=== PATIENT | male | born 1965 | race Caucasian/White ===

== ENCOUNTER 2023-06-05 22:14 | Emergency (ER) | payer OTHER ==
--- OUTSIDE RECORDS SUMMARY | 2023-06-05 22:16 | XMS REPORT | Continuity of Care Document ---
:1965 Author Organization [facility] t Address [address] [facility] [address] [place] [address] Care Team Providers Name Role Phone Unavailable Unavailable Unavailable Payers Payer Name Policy Type Policy Number Effective Date Expiration Date S ource Problems This patient has no known problems. Allergies, Adverse Reactions, Alerts Allergy Allergy Status Severity Reaction(s) Onset Inactive Treating Comm ents Source Name Type Date Date Clinician Penicill DA Active SV 2019-0 [facility] 09[facility]24 [facility] 00:00: e 00 [facility] Penicill DA Active SV PRURITIS 2019-0 [facility] ins 09-24 [facility] 00:00: e 00 [facility] No Known DA Active U 2011-0 [facility] Allergie 1-17 [facility] 00:00: e 00 [facility] Medications This patient has no known medications. Procedures This patient has no known procedures. Encounters Start End Encounter Admission Attending Care Care Encounter Source Date/Time Date/Time Type Type Clinicians Facility Department ID 2019-09-24 Inpatient [facility] JULIO [id number] [facility] 13:27:00 71 [facility] Results This patient has no known results.
[2023-06-05] MEDS ORDERED: ASPIRIN 81 MG CHEWABLE TABLET ONE (22:41)
--- NOTE | 2023-06-06 01:04 | RAD REPORT ---
EXAM DESCRIPTION: Sher Single View06/05/2023 10:55 pm CLINICAL HISTORY: CHEST PAIN COMPARISON: No comparisons TECHNIQUE: Portable AP view of the chest. FINDINGS: The lungs are clear. No pneumothorax or effusion. The cardiomediastinal contours are unre markable. IMPRESSION: No acute cardiopulmonary process.
--- NOTE | 2023-06-06 01:09 | EDPHYS ---
Physician Documentation [facility] Name: Melecio Killian IV Age: 58 yrs Sex: Male : 1965 Arrival Date: 06/05/2023 Time: 22:14 Bed IW10 Private MD: ED Physician Dwain Woods HPI: 06/05 22:44 This 58 yrs old Male presents to ER via Ambulatory with complaints of Chest Pain. 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 Denies radiation, nausea, vomiting or increased shortness of breath. States he smokes so he normally has some shortness of breath. Historical: - Allergies: 22:25 PENICILLINS; bp - Home Meds: 22:25 carvedilol oral [Active]; Adderall XR Oral [Active]; bp - PMHx: 22:25 Hypertension; bp - Immunization history:: Adult Immunizations up to date. - Social history:: Smoking status: Patient reports the use of cigarette tobacco products, unknown amount. ROS: 22:44 Constitutional: Negative for fever, chills, and weight loss, kb 22:44 Cardiovascular: Positive for chest pain, Negative for edema, orthopnea, palpitations, paroxysmal nocturnal dyspnea, 22:44 All other systems are negative, Exam: 22:44 Constitutional: This is a well developed, well nourished patient who is awake, alert, kb and in no acute distress. Head/Face: Normocephalic, atraumatic. ENT: Moist Mucous membranes Cardiovascular: Regular rate Respiratory: Respirations even and unlabored. No increased work of breathing. Talking in full sentences Abdomen/GI: Soft, non-tender. No distention Skin: Warm, dry with normal turgor. Normal color. MS/ Extremity: Pulses equal, no cyanosis. Neurovascular intact. Full, normal range of motion. Neuro: Awake and alert, GCS 15, oriented to person, place, time, and situation. Moves all extremities. Normal gait. 22:50 ECG was reviewed by the Attending Physician. kb Vital Signs: 22:24 BP 121 / 81; Pulse 81; Resp 16; Temp 98; Pulse Ox 96% ; Weight 93.89 kg; Height 5 ft. 9 bp in. ; 22:24 Body Mass Index 30.57 (93.89 kg, 175.26 cm) bp MDM: 22:21 Patient medically screened. 06/06 01:07 Differential diagnosis: abnormal EKG, acute myocardial infarction, coronary artery kb disease. Data reviewed: vital signs, nurses notes. ED course: Pt elected to leave lobby prior to diagnostic testing. 06/05 22:25 Order name: XRAY Chest (1 view); Complete Time: 01:06 kb 06/05 22:25 Order name: EKG; Complete Time: 22:26 kb 06/05 22:25 Order name: Cardiac monitoring 06/05 22:25 Order name: EKG - Nurse/Tech; Complete Time: 22:31 kb 06/05 22:25 Order name: IV Saline Lock kb 06/05 22:25 Order name: Labs collected and sent kb 06/05 22:25 Order name: O2 Per Protocol 06/05 22:25 Order name: O2 Sat Monitoring kb EC/06 22:50 Rate is 69 beats/min. Rhythm is regular. QRS [place] is Normal. [place] interval is normal at kb 156 msec. QRS interval is normal at 112 msec. QT interval is normal at 413 msec. Administered Medications: 22:30 Drug: Aspirin PO Chewable Tablet 324 mg PO once; 81 mg tablets x 4 Route: PO; bp Disposition Summary: 06/06/23 01:08 Discharge Ordered Notes: Location: Home kb Condition: Stable kb Diagnosis - Chest pain, unspecified kb Followup: kb - With: Emergency Department - When: As needed - Reason: Worsening of condition Followup: kb - With: Private Physician - When: 2 - 3 days - Reason: Recheck today's complaints, Continuance of care, Re-evaluation by your physician Discharge Instructions: - Discharge Summary Sheet kb - Nonspecific Chest Pain, Adult, [id number] kb Forms: - Medication Reconciliation Form kb - Thank You Letter kb - Antibiotic Education kb - Prescription Opioid Use kb - Patient Portal Instructions kb - Leadership Thank You Letter kb Signatures: Dispatcher [employer] Ani Bills, SHIRA EVANS-Florencio Koch, RN RN bp
--- NOTE | 2023-06-06 01:09 | ER ---
Nurse's Notes [facility] Name: Melecio Killian IV Age: 58 yrs Sex: Male : 1965 Arrival Date: 06/05/2023 Time: 22:14 Bed IW10 Private MD: Diagnosis: Chest pain, unspecified Presentation: 06/05 22:24 Chief complaint: Patient states: LEFT SIDED CHEST PAINS "SHARP". Coronavirus screen: At bp this time, the client does not indicate any symptoms associated with coronavirus-19. Ebola Screen: No symptoms or risks identified at this time. Initial Sepsis Screen: Does the patient meet any 2 criteria? No. Patient's initial sepsis screen is negative. Does the patient have a suspected source of infection? No. Patient's initial sepsis screen is negative. Risk Assessment: Do you want to hurt yourself or someone else? Patient reports no desire to harm self or others. Onset of symptoms was June 05, 2023 at 22:00. 22:24 Method Of Arrival: Ambulatory bp 22:24 Acuity: SAMPSON 3 bp Triage Assessment: 22:26 General: Appears in no apparent distress. Behavior is calm, cooperative, appropriate bp for age. Pain: Complains of pain in chest. EENT: No deficits noted. Cardiovascular: Reports chest pain. Historical: - Allergies: 22:25 PENICILLINS; bp - Home Meds: 22:25 carvedilol oral [Active]; Adderall XR Oral [Active]; bp - PMHx: 22:25 Hypertension; bp - Immunization history:: Adult Immunizations up to date. - Social history:: Smoking status: Patient reports the use of cigarette tobacco products, unknown amount. Screenin/07 01:31 [facility] ED Fall Risk Assessment (Adult) History of falling in the last 3 months, bp including since admission No falls in past 3 months (0 pts). Abuse screen: Denies threats or abuse. Denies injuries from another. Nutritional screening: No deficits noted. Tuberculosis screening: No symptoms or risk factors identified. Vital Signs: 06/05 22:24 BP 121 / 81; Pulse 81; Resp 16; Temp 98; Pulse Ox 96% ; Weight 93.89 kg; Height 5 ft. 9 bp in. ; 22:24 Body Mass Index 30.57 (93.89 kg, 175.26 cm) bp ED Course: 22:18 Patient arrived in ED. gm2 22:21 Ani Merchant FNP-C [facility] kb 22:21 Dwain Woods MD is Attending Physician. kb 22:25 Triage completed. bp 22:26 Arm band placed on. bp 22:57 XRAY Chest (1 view) In Process Unspecified. EDMS 06/06 01:07 Florencio Bloom, RN is Primary Nurse. bp 01:31 Patient has correct armband on for positive identification. Cardiac monitoring not bp applicable on this patient. 01:31 No provider procedures requiring assistance completed. Patient did not have IV access bp during this emergency room visit. Patient maintains SpO2 saturation greater than 95% on room air. Administered Medications: 06/05 22:30 Drug: Aspirin PO Chewable Tablet 324 mg PO once; 81 mg tablets x 4 Route: PO; bp Outcome: 06/06 01:08 Discharge ordered by MD. kb 01:31 Discharged to home ambulatory, bp 01:31 Condition: stable 01:31 Discharge instructions given to patient, Instructed on discharge instructions, follow up and referral plans. Demonstrated understanding of instructions, follow-up care, 01:32 Patient left the ED. bp Signatures: Dispatcher [employer] EDAK Ani Merchant FNP-C CORE DRILLING SUPERVISOR-Florencio Koch, RN RN Aleta Stone gm2
[2023-06-06 01:36] VITALS: BP 121/81; TEMP 98; O2SAT 96
--- NOTE | 2023-06-10 14:28 | EKG ---
Test Date: 2023-06-05 Test Time: 23:28:46 Advertising Sales Executive: KEENAN MEASUREMENT RESULTS: Intervals: Rate: 69 FL: 156 QRSD: 112 QT: 386 QTc: 413 Milo: P: 60 FL: 156 QRS: 66 T: 53 INTERPRETIVE STATEMENTS: Normal sinus rhythm Normal ECG No previous ECG available for comparison Electronically Signed On 06-10-23 14:16:25 GROUP SALES COORDINATOR by Gary Aden
== END 2023-06-06 01:32 | disposition home or self-care (01) ==
LOC: ER 22:14
DX: R07.9 Chest pain, unspecified (principal); I10 Essential (primary) hypertension; F17.210 Nicotine dependence, cigarettes, uncomplicated; Z88.0 Allergy status to penicillin
CPT/HCPCS: 71045; 93005; 99284

== ENCOUNTER → 2023-10-05 | Emergency (ER) | payer OTHER ==
[~2023-10-05] MED LIST: ASPIRIN 81 MG CHEWABLE TABLET ONE; DIAZEPAM 5 MG TABLET ONE
--- OUTSIDE RECORDS SUMMARY | 2023-10-05 19:53 | XMS REPORT | Continuity of Care Document ---
Author Name Unknown Address [address] [facility] [address] [place] [address] [facility] thconnect Address [address] [facility] [place] [address] Care Team Providers Care Hot Shot Name Role Phone Caprice GOODMAN, Joleen Mensah Primary Care Physician YASH SALMON Attending Clinician Unavailable DIANA RAYMOND Attending Clinician UnavailJOLEEN Lau Attending Clinician GABBY Ching Attending Clinician Unavailable LAB90 Attending Clinician Unavailable SAEID MARQUEZ Attending Clinician Unavailable Joleen Vasques MD Attending Clinician [phone] Payers Payer Name Policy Type Policy Number Effective Date Expirati on Date Source [employer] MP [facility] S[facility] 5 O COP 94 [place] 9 [id number] 2023 00:00:00 Problems Condition Name Condition Details Condition Category Status Onset Date Resolution Date Last Treatment Date Treating Clinician Comments Source Family history of colon cancer Family history of colon cancer Disease Active 10-01 00:00: 00 Nayely Flores - Externa l Other male erectile dysfunctio n Other male erectile dysfunctio n Disease Active 10-01 00:00: 00 Nayely hu Opioid abuse Opioid abuse Disease Active 10-01 00:00: 00 Nayely hu Encounter for screening for lipid disorder Encounter for screening for lipid disorder Disease Active 10-01 00:00: 00 Nayely hu Prediabete s Prediabete s Disease Active 10-01 00:00: 00 Nayely hu Class 1 obesity due to excess calories without serious comorbidit y with body mass index (BMI) of 33.0 to 33.9 in adult Class 1 obesity due to excess calories without serious comorbidit y with body mass index (BMI) of 33.0 to 33.9 in adult Disease Active 10-01 00:00: 00 Nayely hu Mild major depression Mild major depression Disease Active 10-01 00:00: 00 Nayely hu No known active problems No known active problems Disease Nayely Flores Allergies, Adverse Reactions, Alerts Allergy Name Allergy Type Status Severity Reaction(s) Onset Date Inactive Date Treating Clinician Comments Source Penicill ins Propensi ty to adverse reaction s Active Anaphylaxis 08-19 00:00: 00 Nayely hu Penicill ins Propensi ty to adverse reaction s Active Anaphylaxis 08-19 00:00: 00 Nayely Flores Penicill ins DA Active SV 09-24 00:00: 00 [facility] Penicill ins DA Active SV PRURITIS 09-24 00:00: 00 [facility] No Known Allergie s DA Active U 08-16 00:00: 00 [facility] Social History Social Habit Start Date Stop Date Quantity Comments Source Gender identity Lisbeth Flores - External Sexual orientation John Flores - External History of tobacco use Cigarette Smoker Nayely flanagan - External Exposure to SARS-CoV-2 (event) Not sure Nayely saunders History of Social function 2022-11-14 00:00:00 2022-11-14 00:00:00 Nayely Flores - External Sex Assigned At 1965 00:00:00 1965 00:00:00 Nayely Pat Smoking Status Start Date Stop Date Source Smokes tobacco daily 2022-11-14 00:00:00 Nayely Pat Medications Ordered Medication Name Filled Medication Name Start Date Stop Date Current Medication? Ordering Clinician Indication Dosage Frequency Signature (SIG) Comments Components Source Tadalafil 5 MG oral Tablet 10-01 00:00: 00 Yes [id number] 5mg QD Take 1 tablet (5 mg total) by mouth daily as needed for erectile dysfunctio n. Nayely hu Carvedilol 25 MG oral Tablet 09-14 00:00: 00 Yes [id number] 25mg Take 1 tablet (25 mg total) by mouth in the morning and 1 tablet (25 mg total) in the evening. Take with meals. Nayely hu Escitalopra m Oxalate 10 MG oral Tablet 09-14 00:00: 00 Yes [id number] 10mg Take 1 tablet (10 mg total) by mouth daily. Nayely hu Varenicline Tartrate 0.5 MG oral Tablet 09-14 00:00: 00 Yes [id number] Take one tablet daily for days 1 through 3 then one tablet twice a day for days 4 through 7 then two tablets twice a day thereafter take after meals with a full glass of water Start one week prior to cessation and continue for 12 weeks. Nayely hu Varenicline Tartrate 0.5 MG oral Tablet 11-14 00:00: 00 Yes [id number] Take one tablet daily for days 1 through 3 then one tablet twice a day for days 4 through 7 then two tablets twice a day thereafter take after meals with a full glass of water Start one week prior to cessation and continue for 12 weeks Nayely hu Carvedilol 25 MG oral Tablet 11-14 00:00: 00 Yes [id number] 25mg Take 1 tablet (25 mg total) by mouth in the morning and 1 tablet (25 mg total) in the evening. Take with meals. Nayely hu Azithromyci n 250 MG oral Tablet 11-14 00:00: 11-20 04:59 :00 No [id number] Take 2 tablets by mouth on day 1 then 1 tablet by mouth daily for 4 days thereafter . Nayely Rosadohenrikpanchito Recioa fritz Ondansetron (ZOFRAN) 4 MG oral TABLET DISPERSIBLE 10-21 00:00: 00 Yes [id number] 4mg Q.[id number] 3D Take 1 tablet (4 mg total) by mouth every 8 hours as needed for nausea Nayely Rosadohenrikpanchito Suarez Almitaa l Carvedilol 25 MG oral Tablet 10-21 00:00: 00 Yes [id number] 25mg Take 1 tablet (25 mg total) by mouth in the morning and 1 tablet (25 mg total) in the evening. Take with meals. Nayely Rosadohenrikpanchito Suarez Externa fritz Ondansetron (ZOFRAN) 4 MG oral TABLET DISPERSIBLE 10-21 00:00: 00 Yes [id number] 4mg Q.[id number] 3D Take 1 tablet (4 mg total) by mouth every 8 hours as needed for nausea Nayely Rosadohenrikpanchito Suarez Almitasulma fritz Ondansetron (ZOFRAN) 4 MG oral TABLET DISPERSIBLE 10-21 00:00: 00 10-01 00:00 :00 No [id number] 4mg Q.[id number] 3D Take 1 tablet (4 mg total) by mouth every 8 hours as needed for nausea Nayely Rosadonicky Daniela Almitasulma fritz Carvedilol 25 MG oral Tablet 10-21 00:00: 00 11-14 00:00 :00 No [id number] 25mg Take 1 tablet (25 mg total) by mouth in the morning and 1 tablet (25 mg total) in the evening. Take with meals. Nayely Sandra Recioa fritz Azithromyci n 500 MG oral Tablet 10-21 00:00: 00 10-25 04:59 :00 No [id number] Take 2 tablets (1,000 mg total) by mouth daily for 1 day, THEN 1 tablet (500 mg total) daily for 2 days. Nayely Sandra Recioa fritz Carvedilol 25 MG oral Tablet 1-20 10:59: 56 08-19 00:00 :00 No 25mg Take 25 mg by mouth 2 times daily (with meals) Nayely Flores Carvedilol 25 MG oral Tablet 08-19 00:00: 00 Yes [id number] 25mg Take 1 tablet (25 mg total) by mouth 2 times daily (with meals) Nayely Flores Escitalopra m Oxalate 10 MG oral Tablet 08-19 00:00: 00 Yes [id number] 10mg Take 1 tablet (10 mg total) by mouth daily Nayely Flores Escitalopra m Oxalate 10 MG oral Tablet 08-19 00:00: 00 Yes [id number] 10mg Take 1 tablet (10 mg total) by mouth daily Nayely hu Escitalopra m Oxalate 10 MG oral Tablet 08-19 00:00: 00 Yes [id number] 10mg Take 1 tablet (10 mg total) by mouth daily Nayely hu Carvedilol 25 MG oral Tablet 08-19 00:00: 00 10-21 00:00 :00 No [id number] 25mg Take 1 tablet (25 mg total) by mouth 2 times daily (with meals) Nayely hu Vital Signs Vital Name Observation Time Observation Value Comments S ource Systolic blood pressure 2023-10-02 20:51:00 102 mm[Hg] Nayely irwin - External Diastolic blood pressure 2023-10-02 20:51:00 64 mm[Hg] Nayely irwin - External Heart rate 2023-10-02 20:51:00 78 /min Del Flores - External Body temperature 2023-10-02 20:51:00 36.67 Salud Nayely Flores - External Respiratory rate 2023-10-02 20:51:00 16 /min Nayely Flores - External Body height 2023-10-02 20:51:00 175.3 cm Lisbeth Flores - External Body weight 2023-10-02 20:51:00 101.833 kg Lisbeth Flores - External BMI 2023-10-02 20:51:00 33.15 kg/m2 Lisbeth ey Seybold - External Oxygen saturation in Arterial blood by Pulse oximetry 2023-10-02 20:51:00 97 /min Nayely Seybo ld - External Systolic blood pressure 2022-11-14 15:42:00 132 mm[Hg] Nayely Seybo ld - External Diastolic blood pressure 2022-11-14 15:42:00 80 mm[Hg] Nayely Seybo ld - External Heart rate 2022-11-14 15:42:00 69 /min Kelse y Seybold - External Body temperature 2022-11-14 15:42:00 36.11 Salud Nayeyl Seybold - External Respiratory rate 2022-11-14 15:42:00 18 /min Nayely Seybold - External Body height 2022-11-14 15:42:00 175.3 cm Lisbeth ey Seybold - External Body weight 2022-11-14 15:42:00 98.249 kg Lisbeth ey Seybold - External BMI 2022-11-14 15:42:00 31.99 kg/m2 Lisbeth ey Seybold - External Oxygen saturation in Arterial blood by Pulse oximetry 2022-11-14 15:42:00 96 /min Nayely Seybo ld - External Systolic blood pressure 2021-08-19 16:20:00 134 mm[Hg] Nayely Seybo ld Diastolic blood pressure 2021-08-19 16:20:00 80 mm[Hg] Nayely Seybo ld Heart rate 2021-08-19 16:20:00 84 /min Kelse y Seybold Body temperature 2021-08-19 16:20:00 37 Salud Nayely Seybold Respiratory rate 2021-08-19 16:20:00 14 /min Nayely Seybold Body height 2021-08-19 16:20:00 175.3 cm Lisbeth ey Seybold Body weight 2021-08-19 16:20:00 102.059 kg Lisbeth ey Seybold BMI 2021-08-19 16:20:00 33.23 kg/m2 Lisbeth ey Seybold Encounters Start Date/Time End Date/Time Encounter Type Admission Type Attending [facility] Facility Care Department Encounter ID Source 2019-09-24 13:27:00 Inpatient [facility] JULIO [id number] 71 [facility] 2024-04-02 13:20:00 2024-04-02 13:20:00 Outpatient YASH SALMON NAYELY JACKMAN [id number] [facility] 2023-11-02 10:30:00 2023-11-02 10:30:00 Outpatient DIANA RAYMOND NAYELY JACKMAN [id number] N[facility]ely [facility] 2023-10-02 15:00:00 2023-10-02 15:00:00 Outpatient DIANA RAYMOND NAYELY JACKMAN [id number] [facility] 2023-09-14 00:00:00 2023-09-14 00:00:00 Outpatient CAPRICE JOLEEN JACKMAN [id number] [facility] 2023-09-12 00:00:00 2023-09-12 00:00:00 Outpatient PREZASGABBY NAYELY JACKMAN [id number] [facility] 2023-07-13 15:00:00 2023-07-13 15:00:00 Outpatient DIANA RAYMOND NAYELY JACKMAN [id number] [facility] 2023-07-11 15:00:00 2023-07-11 15:00:00 Outpatient DIANA RAYMOND NAYELY JACKMAN [id number] [facility] 2023-06-14 11:00:00 2023-06-14 11:00:00 Outpatient DIANA RAYMOND NAYELY JACKMAN [id number] [facility] 2023-06-08 11:15:00 2023-06-08 11:15:00 Outpatient JOLEEN VASQUES [id number] [facility] 2022-12-14 00:00:00 2022-12-14 00:00:00 Outpatient PREZASKASHIFGABBYMOR JACKMAN [id number] Nayely Seybold 2022-12-13 00:00:00 2022-12-13 00:00:00 Outpatient JOLEEN VASQUES [id number] [facility] 2022-11-22 00:00:00 2022-11-22 00:00:00 Outpatient JOLEEN VASQUES [id number] [facility] 2022-11-21 00:00:00 2022-11-21 00:00:00 Outpatient JOLEEN VASQUESSEY [id number] Nayely Flores 2022-11-16 00:00:00 2022-11-16 00:00:00 Outpatient JOLEEN VASQUES [id number] Nayely Rosadoy[facility]anchito 2022-11-14 11:30:00 2022-11-14 11:30:00 Outpatient LABSahil JACKMAN [facility] [id number] [facility] 2022-11-14 10:30:00 2022-11-14 10:30:00 Outpatient JOLEEN VASQUES NAYELY [id number] Nayely Flores 2022-11-02 09:00:00 2022-11-02 09:00:00 Outpatient SAEID MARQUEZ NAYELY [id number] Nayely Flores 2022-10-21 09:00:00 2022-10-21 09:00:00 Outpatient JIMMYSAEID NAYELY JACKMAN [id number] [facility] 2022-10-20 00:00:00 2022-10-20 00:00:00 Outpatient JOLEEN VASQUES NAYELY [id number] Nayely Flores 2021-12-24 00:00:00 2021-12-24 00:00:00 Outpatient JOLEEN VASQUES [facility] [id number] [facility] 2021-08-19 10:45:00 2021-08-19 11:00:00 Office Visit Joleen Vasques José [place] [id number] [facility] Notes Date/Time Note Provider Source 2023-10-02 14:55:22 [id number] T14:55:22 Chief ComplaintPatient presents withPhysicalPatient is not fasting for labsPaCOLE DenisN [id number] [id number]:55:38Nurse [id number]. [id number] for patient [id number] NoteLNNARRATIVEFormatted C-CDA narrative abiodunWestern [facility] Health[address] [facility] [id number] [id number]:55:[id number] 2.3.15|[id number]. [id number] [facility]"
[2023-10-05 20:11] LABS: Absolute Basophils 0.1 K/uL (0-0.5); Absolute Lymphocytes (CBC) 2.5 K/uL (0.7-4.9); Basophils % 0.8 % (0-1.3); Hematocrit 39.9 % (39.6-49.0); Lymphocytes % 18.1 % (15.3-44.8); MCV 90.1 fL (80-100); MPV 8.6 fL (7.6-11.3); Platelets 231 thou/uL (152-406); RBC Red Blood Cell Count 4.43 M/uL (4.33-5.43)
[2023-10-05 20:13] LABS: Protime INR 1.14
[2023-10-05 20:28] LABS: Anion Gap 7.9 mEq/L (5.0-15.0); Magnesium 2.1 mg/dL (1.6-2.4); Potassium 3.9 mEq/L (3.5-5.1); Troponin High Sensitivity 12.3 pg/mL (<58.9)
--- NOTE | 2023-10-05 20:52 | RAD REPORT ---
[facility] pm CLINICAL HISTORY: CHEST PAIN COMPARISON: Chest Single View dated 06/05/2023 TECHNIQUE: Portable AP view of the chest. FINDINGS: The lungs are clear. No pneumothorax or effusion. The cardiomediastinal contours are unre markable. IMPRESSION: No acute cardiopulmonary process.
--- NOTE | 2023-10-05 22:23 | ER ---
Nurse's Notes [facility] Name: Melecio Killian IV Age: 58 yrs Sex: Male : 1965 Arrival Date: 10/05/2023 Time: 19:40 Bed 16 Private MD: Parker Lara E Diagnosis: Chest pain, unspecified;Non cardiac chest pain, Acute anxiety Presentation: 10/04 19:48 Chief complaint: Patient states: Left sided chest pain that radiates down left arm cm10 onset at 1915. Pt describes the pain as pressure and rates the pain a 6/10 on pain scale. Coronavirus screen: Client denies travel out of the [place] in the last 14 days. At this time, the client does not indicate any symptoms associated with coronavirus-19. Ebola Screen: Patient denies travel to an Ebola-affected area in the 21 days before illness onset. No symptoms or risks identified at this time. Initial Sepsis Screen: Does the patient meet any 2 criteria? No. Patient's initial sepsis screen is negative. Does the patient have a suspected source of infection? No. Patient's initial sepsis screen is negative. Risk Assessment: Do you want to hurt yourself or someone else? Patient reports no desire to harm self or others. Onset of symptoms was October 05, 2023. 19:48 Method Of Arrival: Ambulatory cm10 19:48 Acuity: SAMPSON 2 cm10 Triage Assessment: 19:50 General: Appears in no apparent distress. comfortable, Behavior is calm, cooperative. cm10 Pain: Complains of pain in chest Pain radiates to left arm Pain currently is 6 out of 10 on a pain scale. Quality of pain is described as pressure, Pain began suddenly, Is continuous, Alleviated by nothing. Also complains of nausea. Historical: - Allergies: 19:49 PENICILLINS; cm10 - PMHx: 19:49 Hypertension; cm10 - Immunization history:: Adult Immunizations up to date. - Social history:: Smoking status: Patient reports the use of cigarette tobacco products, smokes one-half pack cigarettes per day. Screenin:13 [facility] ED Fall Risk Assessment (Adult) History of falling in the last 3 months, cp4 including since admission No falls in past 3 months (0 pts) Confusion or Disorientation No (0 pts) Intoxicated or Sedated No (0 pts) Impaired Gait No (0 pts) Mobility Assist Device Used No (0 pt) Altered Elimination No (0 pt) Score/Fall Risk Level 0 - 2 = Low Risk Oriented to surroundings, Maintained a safe environment, Educated pt \T\ family on fall prevention, incl call for assistance when getting out of bed, Assessed \T\ reinforced patient's understanding of fall precautions, Hourly rounding (assess needs \T\ fall precautionary measures) done. Abuse screen: Denies threats or abuse. Nutritional screening: No deficits noted. Tuberculosis screening: No symptoms or risk factors identified. Assessment: 20:13 General: Appears in no apparent distress. Behavior is calm, cooperative, appropriate cp4 for age. Pain: Complains of pain in chest Pain currently is 6 out of 10 on a pain scale. Pain: Pain radiates to left arm. Cardiovascular: Reports chest pain. 22:44 Reassessment: Patient and/or family updated on plan of care and expected duration. Pain ha1 level reassessed. Patient is alert, oriented x 3, equal unlabored respirations, skin warm/dry/pink. Patient states feeling better. Patient states symptoms have improved. Vital Signs: 19:48 BP 129 / 84; Pulse 82; Resp 18 S; Temp 97.6(O); Pulse Ox 95% on R/A; Weight 100.7 kg cm10 (R); Height 5 ft. 9 in. (R); Pain 6/10; 20:00 BP 135 / 89; Pulse 69; Resp 18; Pulse Ox 96% ; cp4 21:00 BP 117 / 89; Pulse 70; Resp 18; Pulse Ox 95% ; cp4 22:05 BP 140 / 85; Pulse 71; Resp 17 S; Temp 98; Pulse Ox 96% on R/A; ha1 19:48 Body Mass Index 32.78 (100.70 kg, 175.26 cm) cm10 19:48 Pain Scale: Adult cm10 ED Course: 19:41 Patient arrived in ED. mr 19:41 Parker Lara MD is Private Physician. mr 19:42 Owen Ghosh DO is Attending Physician. ms3 19:49 Triage completed. cm10 19:50 Arm band placed on Patient placed in an exam room, on a stretcher, on panel monitor, cm10 on pulse oximetry. 19:53 Debra Montoya is Primary Nurse. cp4 20:01 Basic Metabolic Panel Sent. cp4 20:01 CBC with Diff Sent. cp4 20:01 Magnesium Sent. cp4 20:01 PT-INR Sent. cp4 20:02 Troponin HS Sent. cp4 20:02 No provider procedures requiring assistance completed. Inserted saline lock: 20 gauge cp4 in left antecubital area, using aseptic technique. Patient maintains SpO2 saturation greater than 95% on room air. 20:13 Attending Physician role handed off by Owen Ghosh DO ms3 20:13 Dwani Woods MD is Attending Physician. ms3 20:13 Placed in gown. Bed in low position. Call light in reach. Side rails up X 1. Provided cp4 Education on:. Client placed on continuous cardiac and pulse oximetry monitoring. NIBP monitoring applied. 20:36 XRAY Chest (1 view) In Process Unspecified. EDMS 21:51 Troponin High Sensitivity Sent. cp4 22:05 Report received from Pao Montoya RN. ha1 22:21 Parker Lara MD is Referral Physician. sp4 22:46 IV discontinued, intact, bleeding controlled, No redness/swelling at site. Pressure ha1 dressing applied. Administered Medications: 20:01 Drug: Aspirin PO Chewable Tablet 324 mg PO once; 81 mg tablets x 4 Route: PO; cp4 22:35 Drug: Diazepam PO 5 mg PO once Route: PO; ha1 22:46 Follow up: Response: No adverse reaction ha1 Medication: 20:13 VIS not applicable for this client. cp4 Outcome: 22:22 Discharge ordered by . sp4 22:46 Discharged to home ambulatory, with family, ha1 22:46 Condition: stable 22:46 Discharge instructions given to patient, family, Instructed on discharge instructions, follow up and referral plans. medication usage, Demonstrated understanding of instructions, follow-up care, medications, Prescriptions given X 1, 22:46 Patient left the ED. ha1 Signatures: Dispatcher [employer] EDGA Torrie Holloway, Clifford Reg GhoshOwen DO DO ms3 Rika Ho RN RN ha1 Dwain Woods MD MD sp4 Sara Bloom RN RN cmDebra Kline cp4
--- NOTE | 2023-10-05 22:23 | EDPHYS ---
Physician Documentation [facility] Name: Wayne Wu IV Age: 58 yrs Sex: Male : 1965 Arrival Date: 10/05/2023 Time: 19:40 Bed 16 Private MD: Parker Lara E ED Physician Dwain Woods HPI: 10/04 19:49 This 58 yrs old Male presents to ER via Ambulatory with complaints of Chest Pain. ms3 19:49 58-year-old male with past medical history of hypertension presents to the emergency ms3 department for left-sided chest pain that began at 7:45 PM. Patient states that the pain radiates down his left arm. Patient endorses nausea. Patient denies vomiting, shortness of breath, diaphoresis. Patient denies any alleviating or inciting factors. Historical: - Allergies: 19:49 PENICILLINS; cm10 - PMHx: 19:49 Hypertension; cm10 - Immunization history:: Adult Immunizations up to date. - Social history:: Smoking status: Patient reports the use of cigarette tobacco products, smokes one-half pack cigarettes per day. ROS: 19:49 Constitutional: Negative for fever, and chills. Neck: Negative for injury, pain, and ms3 swelling, 19:49 Respiratory: Negative for shortness of breath, cough, wheezing, and pleuritic chest pain, MS/Extremity: Negative for injury and deformity, Skin: Negative for injury, rash, and discoloration, 19:49 Cardiovascular: Positive for chest pain, 19:49 Abdomen/GI: Positive for nausea, Negative for vomiting, diarrhea, ms3 Exam: 19:49 Constitutional: This is a well developed, well nourished patient who is awake, alert, ms3 and in no acute distress. Head/Face: Normocephalic, atraumatic. Neck: Trachea midline, no cervical lymphadenopathy. Supple, full range of motion without nuchal rigidity, or vertebral point tenderness. No Meningismus. Chest/axilla: Normal chest wall appearance and motion. Nontender with no deformity. Cardiovascular: Regular rate and rhythm with a normal S1 and S2. No gallops, murmurs, or rubs. Normal PMI, no JVD. No pulse deficits. Respiratory: Lungs have equal breath sounds bilaterally, clear to auscultation and percussion. No rales, rhonchi or wheezes noted. No increased work of breathing, no retractions or nasal flaring. Abdomen/GI: Soft, non-tender, with normal bowel sounds. No distension or tympany. No guarding or rebound. No evidence of tenderness throughout. Skin: Warm, dry with normal turgor. Normal color with no rashes, no lesions, and no evidence of cellulitis. MS/ Extremity: Pulses equal, no cyanosis. Neurovascular intact. Full, normal range of motion. 19:52 ECG was reviewed by the Attending Physician. ms3 Vital Signs: 19:48 BP 129 / 84; Pulse 82; Resp 18 S; Temp 97.6(O); Pulse Ox 95% on R/A; Weight 100.7 kg cm10 (R); Height 5 ft. 9 in. (R); Pain 6/10; 20:00 BP 135 / 89; Pulse 69; Resp 18; Pulse Ox 96% ; cp4 21:00 BP 117 / 89; Pulse 70; Resp 18; Pulse Ox 95% ; cp4 22:05 BP 140 / 85; Pulse 71; Resp 17 S; Temp 98; Pulse Ox 96% on R/A; ha1 19:48 Body Mass Index 32.78 (100.70 kg, 175.26 cm) cm10 19:48 Pain Scale: Adult cm10 MDM: 19:49 Differential diagnosis: abnormal EKG, acute myocardial infarction, anxiety, chest wall ms3 pain. The patient was given aspirin in the Emergency Department. 19:52 Patient medically screened. ms3 20:13 Transition of care: After a detail discussion of the patient's case, care is ms3 transferred to Dwain Woods MD. 22:23 HEART Score: History: Slightly Suspicious (0), ECG: Normal (0), Age: > 45 and < 65 sp4 years (1), Risk Factors: 1 or 2 risk factors (1), Troponin: < or = 1 x Normal Limit (0), Total Score = 2. Data reviewed: vital signs, nurses notes. 22:24 ED course: Troponin x 2 is negative. Patient stable for discharge home. Symptoms sp4 consistent with anxiety. Prescribed as needed Valium.. 22:25 ED course: EXAM DESCRIPTION: Sher Fausto View10/05/2023 8:34 pm CLINICAL HISTORY: sp4 CHEST PAIN COMPARISON: Chest Single View dated 06/05/2023 TECHNIQUE: Portable AP view of the chest. FINDINGS: The lungs are clear. No pneumothorax or effusion. The cardiomediastinal contours are unremarkable. IMPRESSION: No acute cardiopulmonary process.. 22:54 ED course: RADIOLOGYSERVICES REPORT Name: WAYNE WU IV Acct Number: [id number] :[id number] Age:58 Sex:M Ord Phys: Owen Ghosh Unit Number: [id number] [place] [facility] Dr: Parker Lara MD CLINICAL HISTORY: CHEST PAIN COMPARISON: Chest Single View dated 06/05/2023 TECHNIQUE: Portable AP view of the chest. FINDINGS: The lungs are clear. No pneumothorax or effusion. The cardiomediastinal contours are unremarkable. IMPRESSION: No acute cardiopulmonary process. . 10/04 19:51 Order name: Basic Metabolic Panel; Complete Time: 21:42 ms3 10/04 19:51 Order name: CBC with Diff; Complete Time: 21:42 ms3 10/04 19:51 Order name: Magnesium; Complete Time: 21:42 ms3 10/04 19:51 Order name: PT-INR; Complete Time: 21:42 ms3 10/04 19:51 Order name: Troponin HS; Complete Time: 21:42 ms3 10/04 21:44 Order name: Troponin High Sensitivity; Complete Time: 22:21 sp4 10/04 19:51 Order name: XRAY Chest (1 view); Complete Time: 21:42 ms3 10/04 19:51 Order name: EKG; Complete Time: 19:52 ms3 10/04 19:51 Order name: Cardiac monitoring; Complete Time: 19:53 ms3 10/04 19:51 Order name: EKG - Nurse/Tech; Complete Time: 19:53 ms3 10/04 19:51 Order name: IV Saline Lock; Complete Time: 20:01 ms3 10/04 19:51 Order name: Labs collected and sent; Complete Time: 20:01 ms3 10/04 19:51 Order name: O2 Per Protocol; Complete Time: 19:53 ms3 10/04 19:51 Order name: O2 Sat Monitoring; Complete Time: 19:53 ms3 EC:52 Rate is 73 beats/min. Rhythm is regular. QRS [facility] is Normal. [place] interval is normal. QRS ms3 interval is normal. Clinical impression: Normal ECG. Interpreted by me. Reviewed by me. Administered Medications: 20:01 Drug: Aspirin PO Chewable Tablet 324 mg PO once; 81 mg tablets x 4 Route: PO; cp4 22:35 Drug: Diazepam PO 5 mg PO once Route: PO; ha1 22:46 Follow up: Response: No adverse reaction ha1 Disposition Summary: 10/05/23 22:22 Discharge Ordered Notes: Location: Home sp4 Problem: new sp4 Symptoms: have improved sp4 Condition: Stable sp4 Diagnosis - Chest pain, unspecified sp4 - Non cardiac chest pain, Acute anxiety sp4 Followup: sp4 - With: Parker Lara MD - When: 7 - 10 days - Reason: Recheck today's complaints Discharge Instructions: - Discharge Summary Sheet sp4 - Managing Anxiety, Adult sp4 Forms: - Patient Portal Instructions sp4 Prescriptions: - Valium 5 mg Oral tablet - take 1 tablet ORAL route once daily As needed PRN anxiety attacks; 20 tablet; sp4 Refills: 0, Product Selection Permitted Signatures: Dispatcher [employer] EDMS Owen Ghosh, DO ms3 Rika Ho RN RN ha1 Dwain Woods MD MD sp4 Sara Bloom RN RN cm10 Debra Montoya cp4 Corrections: (The following items were deleted from the chart) 19:51 19:49 Respiratory: Negative for shortness of breath, cough, wheezing, and pleuritic ms3 chest pain, Abdomen/GI: Negative for abdominal pain, nausea, vomiting, diarrhea, and constipation, MS/Extremity: Negative for injury and deformity, Skin: Negative for injury, rash, and discoloration, ms3
[2023-10-05 23:57] VITALS: BP 140/85; TEMP 98; O2SAT 96
== END ==
LOC: ER 19:40
DX: R07.89 Other chest pain (principal); F41.9 Anxiety disorder, unspecified; I10 Essential (primary) hypertension; F17.210 Nicotine dependence, cigarettes, uncomplicated; Z88.0 Allergy status to penicillin
CPT/HCPCS: 36415; 71045; 80048; 83735; 84484; 85025; 85610; 93005; 99284

== ENCOUNTER 2025-04-19 12:18 | Emergency (ER) | payer OTHER, SELFPAY ==
--- OUTSIDE RECORDS SUMMARY | 2025-04-19 12:22 | XMS REPORT | Continuity of Care Document ---
Author Name Unknown Address [address] [place] [address] [facility] Address [address] [place] [address] Care Team Providers Care Putty Remover Name Role Phone Caprice GOODMAN, Joleen Mensah Primary Care Physician DIANA RAYMOND Attending Clinician Unavailab YASH Villa Attending Clinician Unavailable GABBY ZIMMER Attending Clinician Unavailable JOLEEN VASQUES Attending Clinician Unava ilable LAB90 Attending Clinician Unavailable SAEID MARQUEZ Attending Clinician Unavailable Joleen Vasques MD Attending Clinician [phone] Payers Payer Name Policy Type Policy Number Effective Date Expirati on Date Source [employer] 5 O [employer] 94 ON 9 [id number] 2023 00:00:00 Problems Condition Name Condition Details Condition Category Status Onset Date Resolution Date Last Treatment Date Treating Clinician Comments Source Prediabete s Prediabete s Disease Active 10-01 00:00: 00 Nayely hu Class 1 obesity due to excess calories without serious comorbidit y with body mass index (BMI) of 33.0 to 33.9 in adult Class 1 obesity due to excess calories without serious comorbidit y with body mass index (BMI) of 33.0 to 33.9 in adult Disease Active 10-01 00:00: 00 Nayely Recioa fritz Mild major depression Mild major depression Disease Active 10-01 00:00: 00 Nayely Flores - Externa fritz Family history of colon cancer Family history of colon cancer Disease Active 10-01 00:00: 00 Nayely Recioa fritz Other male erectile dysfunctio n Other male erectile dysfunctio n Disease Active 10-01 00:00: 00 Nayely Suarez Externa fritz Opioid abuse Opioid abuse Disease Active 10-01 00:00: 00 Nayely Suarez Externa fritz Encounter for screening for lipid disorder Encounter for screening for lipid disorder Disease Active 10-01 00:00: 00 Nayely Suarez Externa fritz No known active problems No known active problems Disease Nayely Flores Allergies, Adverse Reactions, Alerts Allergy Name Allergy Type Status Severity Reaction(s) Onset Date Inactive Date Treating Clinician Comments Source Penicill ins Propensi ty to adverse reaction s Active Anaphylaxis 08-19 00:00: 00 Nayely Recioa l Penicill ins Propensi ty to adverse reaction s Active Anaphylaxis 08-19 00:00: 00 Nayely Flores Penicill ins DA Active SV 09-24 00:00: 00 [facility] Penicill ins DA Active SV PRURITIS 09-24 00:00: 00 [facility] No Known Allergie s DA Active U 08-16 00:00: 00 [facility] Social History Social Habit Start Date Stop Date Quantity Comments Source Gender identity Lisbeth Flores - External Sexual orientation John Flores - External History of tobacco use Cigarette Smoker Nayely flanagan - External Exposure to SARS-CoV-2 (event) Not sure Nayely saunders History of Social function 2022-11-14 00:00:00 2022-11-14 00:00:00 Nayely Flores - External Sex Ass[birth year] At [birth year] 00:00:00 Nayely Pat Smoking Status Start Date Stop Date Source Smokes tobacco daily 2022-11-14 00:00:00 Nayely Pat Medications Ordered Medication Name Filled Medication Name Start Date Stop Date Current Medication? Ordering Clinician Indication Dosage Frequency Signature (SIG) Comments Components Source Tadalafil 5 MG oral Tablet 10-01 00:00: 00 Yes [id number] 5mg QD Take 1 tablet (5 mg total) by mouth daily as needed for erectile dysfunctio n. Nayely hu Carvedilol 25 MG oral Tablet 09-14 00:00: 00 Yes [id number] 25mg Take 1 tablet (25 mg total) by mouth in the morning and 1 tablet (25 mg total) in the evening. Take with meals. Nayely hu Escitalopra m Oxalate 10 MG oral Tablet 09-14 00:00: 00 Yes [id number] 10mg Take 1 tablet (10 mg total) by mouth daily. Nayely hu Varenicline Tartrate 0.5 MG oral Tablet 09-14 00:00: 00 Yes [id number] Take one tablet daily for days 1 through 3 then one tablet twice a day for days 4 through 7 then two tablets twice a day thereafter take after meals with a full glass of water Start one week prior to cessation and continue for 12 weeks. Nayely hu Varenicline Tartrate 0.5 MG oral Tablet 11-14 00:00: 00 Yes [id number] Take one tablet daily for days 1 through 3 then one tablet twice a day for days 4 through 7 then two tablets twice a day thereafter take after meals with a full glass of water Start one week prior to cessation and continue for 12 weeks Nayely hu Carvedilol 25 MG oral Tablet 11-14 00:00: 00 Yes [id number] 25mg Take 1 tablet (25 mg total) by mouth in the morning and 1 tablet (25 mg total) in the evening. Take with meals. Nayely hu Azithromyci n 250 MG oral Tablet 11-14 00:00: 00 11-20 04:59 :00 No [id number] Take 2 tablets by mouth on day 1 then 1 tablet by mouth daily for 4 days thereafter . Nayely hu Carvedilol 25 MG oral Tablet 10-21 00:00: 00 Yes [id number] 25mg Take 1 tablet (25 mg total) by mouth in the morning and 1 tablet (25 mg total) in the evening. Take with meals. Nayely hu Ondansetron (ZOFRAN) 4 MG oral TABLET DISPERSIBLE 10-21 00:00: 00 10-01 00:00 :00 No [id number] 4mg [id number] 3D Take 1 tablet (4 mg total) by mouth every 8 hours as needed for nausea Nayely hu Azithromyci n 500 MG oral Tablet 10-21 00:00: 00 10-25 04:59 :00 No [id number] Take 2 tablets (1,000 mg total) by mouth daily for 1 day, THEN 1 tablet (500 mg total) daily for 2 days. Nayely hu Carvedilol 25 MG oral Tablet 08-19 10:59: 56 08-19 00:00 :00 No 25mg Take 25 mg by mouth 2 times daily (with meals) Nayely Flores Carvedilol 25 MG oral Tablet 08-19 00:00: 00 Yes [id number] 25mg Take 1 tablet (25 mg total) by mouth 2 times daily (with meals) Nayely Flores Escitalopra m Oxalate 10 MG oral Tablet 08-19 00:00: 00 Yes [id number] 10mg Take 1 tablet (10 mg total) by mouth daily Nayely hu Vital Signs Vital Name Observation Time Observation Value Comments S marly Systolic blood pressure 2023-10-02 20:51:00 102 mm[Hg] Nayely irwin - External Diastolic blood pressure 2023-10-02 20:51:00 64 mm[Hg] Nayely irwin - External Heart rate 2023-10-02 20:51:00 78 /min Kelse y Seybold - External Body temperature 2023-10-02 20:51:00 36.67 Salud Nayely Seybold - External Respiratory rate 2023-10-02 20:51:00 16 /min Nayely Seybold - External Body height 2023-10-02 20:51:00 175.3 cm Lisbeth ey Seybold - External Body weight 2023-10-02 20:51:00 101.833 kg Lisbeth ey Seybold - External BMI 2023-10-02 20:51:00 33.15 kg/m2 Lisbeth ey Seybold - External Oxygen saturation in Arterial blood by Pulse oximetry 2023-10-02 20:51:00 97 /min Nayely Seybo ld - External Systolic blood pressure 2022-11-14 15:42:00 132 mm[Hg] Nayely Seybo ld - External Diastolic blood pressure 2022-11-14 15:42:00 80 mm[Hg] Nayely Seybo ld - External Heart rate 2022-11-14 15:42:00 69 /min Richardse y Seybold - External Body temperature 2022-11-14 15:42:00 36.11 Salud Nayely Seybold - External Respiratory rate 2022-11-14 15:42:00 [...] Body height 2021-08-19 16:20:00 175.3 cm Lisbeth Flores Body weight 2021-08-19 16:20:00 102.059 kg Lisbeth Flores BMI 2021-08-19 16:20:00 33.23 kg/m2 Lisbeth Flores Encounters Start Date/Time End Date/Time Encounter Type Admission Type Attending [facility] Care Department Encounter ID Source 2019-09-24 13:27:00 Inpatient HCABM JULIO [id number] [facility] 2024-05-26 00:00:00 2024-05-26 00:00:00 Outpatient DIANA RAYMOND [id number] [facility] 2024-04-02 13:20:00 2024-04-02 13:20:00 Outpatient LUIS ANTONIO YASH NAYELY JACKMAN [id number] [facility] 2023-12-15 00:00:00 2023-12-15 00:00:00 Outpatient DIANA RAYMOND [id number] [facility] 2023-12-11 00:00:00 2023-12-11 00:00:00 Outpatient DIANA RAYMOND [id number] [facility] 2023-11-21 11:30:00 2023-11-21 11:30:00 Outpatient DIANA RAYMOND [id number] [facility] 2023-11-14 00:00:00 2023-11-14 00:00:00 Outpatient DIANA RAYMOND [id number] [facility] 2023-11-13 00:00:00 2023-11-13 00:00:00 [facility] [id number] [facility]23-[facility]-13 00:00:00 2023-11-13 00:00:00 [id number] [facility]23-[facility]-10 00:00:00 2023-11-10 00:00:00 Outpatient JOLEEN VASQUES [id number] [facility] 2023-11-10 00:00:00 2023-11-10 00:00:00 Outpatient PREZAGABBY Sullivan NAYELY JACKMAN [id number] N[facility]ely Seybold 2023-11-02 10:30:00 2023-11-02 10:30:00 Outpatient DIANA RAYMOND NAYELY JACKMAN [id number] N[facility] Seybold 2023-10-02 15:00:00 2023-10-02 15:00:00 Outpatient DIANA RAYMOND NAYELY JACKMAN [id number] Nayely Seybold 2023-09-14 00:00:00 2023-09-14 00:00:00 Outpatient CAPRICE JOLEEN JACKMAN [id number] N[facility]ely Seybold 2023-09-12 00:00:00 2023-09-12 00:00:00 Outpatient PREZAGABBY Sullivan NAYELY JACKMAN [id number] Nayely Seybold 2023-07-13 15:00:00 2023-07-13 15:00:00 Outpatient DIANA RAYMOND [facility]ELY JACKMAN [id number] [facility] 2023-07-11 15:00:00 2023-07-11 15:00:00 Outpatient DIANA RAYMOND NAYELY JACKMAN [id number] N[facility]ely Seybold 2023-06-14 11:00:00 2023-06-14 11:00:00 Outpatient DIANA RAYMOND NAYELY JACKMAN [id number] Nayely Seybold 2023-06-08 11:15:00 2023-06-08 11:15:00 Outpatient JOLEEN VASQUES [id number] N[facility]ely Seybold 2022-12-14 00:00:00 2022-12-14 00:00:00 Outpatient PREZAGABBY Sullivan NAYELY JACKMAN [id number] Nayely Seybold 2022-12-13 00:00:00 2022-12-13 00:00:00 Outpatient JOLEEN VASQUES [id number] N[facility]ely Seybold 2022-11-22 00:00:00 2022-11-22 00:00:00 Outpatient JOLEEN VASQUES [id number] N[facility]ely Seybold 2022-11-21 00:00:00 2022-11-21 00:00:00 Outpatient JOLEEN VASQUESRISSA JACKMAN [id number] [facility] 2022-11-16 00:00:00 2022-11-16 00:00:00 Outpatient JOLEEN VASQUES NAYELY JACKMAN [id number] [facility] 2022-11-14 11:30:00 2022-11-14 11:30:00 Outpatient [id number] [facility] 2022-11-14 10:30:00 2022-11-14 10:30:00 Outpatient JOLEEN VASQUES NAYELY JACKMAN [id number] [facility] 2022-11-02 09:00:00 2022-11-02 09:00:00 Outpatient SAEID MARQUEZ NAYELY JACKMAN [id number] [facility] 2022-10-21 09:00:00 2022-10-21 09:00:00 Outpatient LAMONTE MARQUEZBarbara JACKMAN [id number] [facility] 2022-10-20 00:00:00 2022-10-20 00:00:00 Outpatient JOLEEN VASQUES NAYELY JACKMAN [id number] [facility] 2021-12-24 00:00:00 2021-12-24 00:00:00 Outpatient JOLEEN VASQUES NAYELY JACKMAN [id number] [facility] 2021-08-19 10:45:00 2021-08-19 11:00:00 Office Visit CapriceJoleen rivero Rodrick [place] [id number] [facility] Notes Date/Time Note Provider Source 2023-10-02 14:55:22 Chief Complaint Patient presents with Physical Patient is not fasting for labs Sharon Williamson [facility]
[2025-04-19 12:43] LABS: Absolute Lymphocytes (CBC) 1.2 K/uL (0.7-4.9); Hematocrit 45.1 % (39.6-49.0); Hemoglobin 15.0 g/dL (13.6-17.9); MCH 29.8 pg (27.0-35.0); MCHC 33.3 g/dL (32.0-36.0); MCV 89.4 fL (80-100); MPV 8.5 fL (7.6-11.3); Nucleated RBC Absolute Count 0.0 (0-0); Nucleated Red Blood Cells % 0.1 % (0-0); RBC Red Blood Cell Count 5.04 M/uL (4.33-5.43); White Blood Count 11.60 thou/uL (4.3-10.9)
[2025-04-19] MEDS ORDERED: ASPIRIN 81 MG CHEWABLE TABLET ONE (12:46)
[2025-04-19 12:57] LABS: PT Prothrombin Time 13.2 SECONDS (10-13.0); Protime INR 1.17
--- NOTE | 2025-04-19 13:05 | RAD REPORT ---
EXAMINATION: ONE VIEW CHEST XR CLINICAL INDICATION: CHEST PAIN TECHNIQUE: Frontal chest projection is submitted. Examination is limited by patient positioning and t echnique. COMPARISON: 10/05/2023 FINDINGS: The lungs are well inflated and clear. The heart is normal in size. No displaced fractures identified . IMPRESSION: No acute intrathoracic abnormalities.
[2025-04-19 13:10] LABS: ALT/SGPT 25.0 U/L (16-61); AST/SGOT 17.0 U/L (15-37); Albumin 3.3 g/dL (3.4-5.0); Albumin/Globulin Ratio 0.8 (1.1-1.8); Alkaline Phosphatase 52.0 U/L (45-117); Anion Gap 7.1 mEq/L (5.0-15.0); BUN Blood Urea Nitrogen 27.0 mg/dL (7-18); Bilirubin Indirect, Calculated 0.2 mg/dL (0.2-0.8); Globulin 4.1 g/dL (2.3-3.5); Glucose Level 119.0 mg/dL (74-106); Magnesium 2.2 mg/dL (1.6-2.4); NT PRO-BNP 90.0 pg/mL (<125); Potassium 4.1 mEq/L (3.5-5.1); Troponin High Sensitivity 14.3 pg/mL (<58.9)
[2025-04-19 13:16] LABS: Influenza A Ag Negative; Influenza B Ag Negative; SARS-CoV-2 Antigen Rapid Res Negative (Negative)
--- NOTE | 2025-04-19 13:21 | ER ---
Nurse's Notes [facility] Name: Melecio Killian IV Age: 60 yrs Sex: Male : 1965 Arrival Date: 04/19/2025 Time: 12:18 Bed 15 Private MD: Diagnosis: Essential (primary) hypertension;Chest pain, unspecified Presentation: 04/19 12:16 Chief complaint: EMS states: HIGH BP STARTED YESTERDAY WORSE TODAY. OUT OF CARVEDILOL db 25 MG MISSED 2 DOSES. NOW HAS CHEST PAIN WITH BLURRED VISION, HEADACHE AND STABBING NEEDLE CHEST PAIN. Coronavirus screen: Client denies travel out of the [place] in the last 14 days. At this time, the client does not indicate any symptoms associated with coronavirus-19. Ebola Screen: Patient negative for fever greater than or equal to 101.5 degrees Fahrenheit, and additional compatible Ebola Virus Disease symptoms Patient denies exposure to infectious person. Patient denies travel to an Ebola-affected area in the 21 days before illness onset. No symptoms or risks identified at this time. Initial Sepsis Screen: Does the patient meet any 2 criteria? No. Patient's initial sepsis screen is negative. Does the patient have a suspected source of infection? No. Patient's initial sepsis screen is negative. Risk Assessment: Do you want to hurt yourself or someone else? Patient reports no desire to harm self or others. Onset of symptoms was April 19, 2025. Care prior to arrival: Medication(s) given: Nitroglycerin, 0.4 mg SL x 1, x 3, Tylenol, 500 MG. 12:16 Method Of Arrival: EMS: [facility] db 12:16 Acuity: SAMPSON 2 db Triage Assessment: 12:16 General: Appears in no apparent distress. comfortable, Behavior is calm, cooperative, db appropriate for age. Pain: Complains of pain in chest. Pain: Quality of pain is described as stabbing. Neuro: Level of Consciousness is awake, alert, obeys commands, Oriented to person, place, time, situation. Cardiovascular: Reports chest pain. Respiratory: Airway is patent Respiratory effort is even, unlabored, Respiratory pattern is regular, symmetrical. Historical: - Allergies: 12:16 PENICILLINS; db - Home Meds: 12:16 carvedilol 25 mg oral tablet [Active]; db - PMHx: 12:16 Hypertension; db - Immunization history:: Adult Immunizations unknown. - Infectious Disease History:: Denies. - Social history:: Smoking status: Patient denies any tobacco usage or history of. Screenin:28 [facility] ED Fall Risk Assessment (Adult) History of falling in the last 3 months, db including since admission No falls in past 3 months (0 pts) Confusion or Disorientation No (0 pts) Intoxicated or Sedated No (0 pts) Impaired Gait No (0 pts) Mobility Assist Device Used No (0 pt) Altered Elimination No (0 pt) Score/Fall Risk Level 0 - 2 = Low Risk Oriented to surroundings, Maintained a safe environment. Abuse screen: Denies threats or abuse. Denies injuries from another. Nutritional screening: No deficits noted. Tuberculosis screening: No symptoms or risk factors identified. Assessment: 12:27 Reassessment: SEE TRIAGE FOR INITIAL ASSESSMENT. db 13:06 Reassessment: Patient appears in no apparent distress at this time. Patient and/or db family updated on plan of care and expected duration. Pain level reassessed. Patient is alert, oriented x 3, equal unlabored respirations, skin warm/dry/pink. General: Appears in no apparent distress. comfortable, Behavior is calm, cooperative. Pain: Complains of pain in chest Pain does not radiate. Pain began gradually. Neuro: Level of Consciousness is awake, alert, obeys commands, Oriented to person, place, time, situation. Respiratory: Airway is patent Respiratory effort is even, unlabored, Respiratory pattern is regular, symmetrical. 13:44 Reassessment: Patient appears in no apparent distress at this time. Patient and/or db family updated on plan of care and expected duration. Pain level reassessed. Patient is alert, oriented x 3, equal unlabored respirations, skin warm/dry/pink. General: Appears in no apparent distress. comfortable, Behavior is calm, cooperative. Neuro: Level of Consciousness is awake, alert, obeys commands, Oriented to person, place, time, situation. Respiratory: Airway is patent Respiratory effort is even, unlabored, Respiratory pattern is regular, symmetrical. Vital Signs: 12:16 BP 152 / 123; Pulse 102; Resp 18; Temp 98.2(O); Pulse Ox 99% ; Weight 97.52 kg; Height db 5 ft. 9 in. ; Pain 8/10; 12:30 BP 152 / 99; Pulse 84; Resp 16; Pulse Ox 97% on R/A; db 13:00 BP 152 / 106; Pulse 78; Resp 17; Pulse Ox 96% on R/A; db 12:16 Body Mass Index 31.75 (97.52 kg, 175.26 cm) db 12:16 Pain Scale: Adult db ED Course: 12:16 Arm band placed on Patient placed in an exam room. db 12:20 Patient arrived in ED. sb4 12:20 Ana Rendon PA-C is PHCP. sb4 12:20 Efrem Garrison MD is Attending Physician. sb4 12:22 Nighat Eddy, ARLYN is Primary Nurse. db 12:25 Triage completed. db 12:28 Maintain EMS IV. Dressing intact. Good blood return noted. Site clean \T\ dry. Gauge \T\ db site: 20 G LAC. Flushed with 10 mL NS. 12:29 Patient has correct armband on for positive identification. Bed in low position. Call db light in reach. Side rails up X 1. Client placed on continuous cardiac and pulse oximetry monitoring. NIBP monitoring applied. court recording monitor on. Pulse ox on. NIBP on. Pillow given. 12:48 COVID-19 Ag + Flu A+B Ag Sent. db 13:02 XRAY Chest (1 view) In Process Unspecified. EDMS 13:47 Provided Education on: DISCHARGE AND FOLLOWUP. db 13:47 No provider procedures requiring assistance completed. IV discontinued, intact, db bleeding controlled, No redness/swelling at site. Patient maintains SpO2 saturation greater than 95% on room air. Administered Medications: 12:50 Drug: Aspirin PO Chewable Tablet 324 mg PO once; 81 mg tablets x 4 Route: PO; db 13:48 Follow up: Response: No adverse reaction db 12:50 Drug: carvedilol PO 25 mg PO once; administer with food Route: PO; db 13:48 Follow up: Response: No adverse reaction db 13:17 CANCELLED (Physician Discretion): ns 0.9% 1000 ml IV at 1000 ml once; to be given as a sb4 bolus over 60 minutes Medication: 13:47 VIS not applicable for this client. db Outcome: 13:20 Discharge ordered by . sb4 13:47 Discharged to home ambulatory, with family, db 13:47 Condition: stable 13:47 Discharge instructions given to patient, family, Instructed on discharge instructions, follow up and referral plans. 13:49 Patient left the ED. db Signatures: Dispatcher [employer] Nighat Mondragon RN RN Ana Florez, PA-C PA-C sb4
--- NOTE | 2025-04-19 13:21 | EDPHYS ---
Physician Documentation [facility] Name: Melecio Killian IV Age: 60 yrs Sex: Male : 1965 Arrival Date: 04/19/2025 Time: 12:18 Bed 15 Private MD: ED Physician Efrem Garrison HPI: 04/19 12:24 This 60 yrs old Male presents to ER via Unassigned with complaints of High Blood sb4 Pressure, Chest Pain. 12:31 Patient states that he has been out of his carvedilol for about 2 days now. His blood sb4 pressure has been running high and he has been experiencing some chest pain, substernal that radiates around his right side. States that today he developed headache and blurry vision. Denies any major cardiac history. Historical: - Allergies: 12:16 PENICILLINS; db - Home Meds: 12:16 carvedilol 25 mg oral tablet [Active]; db - PMHx: 12:16 Hypertension; db - Immunization history:: Adult Immunizations unknown. - Infectious Disease History:: Denies. - Social history:: Smoking status: Patient denies any tobacco usage or history of. ROS: 12:31 Constitutional: Negative for fever, chills, and weight loss, sb4 12:31 Cardiovascular: Positive for chest pain, 12:31 Neuro: Positive for headache, per HPI, 12:31 All other systems are negative, Exam: 12:31 Head/Face: Normocephalic, atraumatic. Eyes: Extra-ocular motions intact. Periorbital sb4 areas with no swelling, redness, or edema. ENT: Mucous membranes moist. Cardiovascular: Regular rate and rhythm with a normal S1 and S2. Respiratory: No increased work of breathing, no retractions or nasal flaring. Abdomen/GI: Soft, non-tender, no distension. 12:31 Constitutional: The patient appears in no acute distress, alert, awake, 12:31 Skin: Appearance: flushing, noted on the face, Vital Signs: 12:16 BP 152 / 123; Pulse 102; Resp 18; Temp 98.2(O); Pulse Ox 99% ; Weight 97.52 kg; Height db 5 ft. 9 in. ; Pain 8/10; 12:30 BP 152 / 99; Pulse 84; Resp 16; Pulse Ox 97% on R/A; db 13:00 BP 152 / 106; Pulse 78; Resp 17; Pulse Ox 96% on R/A; db 12:16 Body Mass Index 31.75 (97.52 kg, 175.26 cm) db 12:16 Pain Scale: Adult db MDM: 12:20 Medical Screening Exam initiated sb4 13:21 Differential diagnosis: hypertensive crisis, Malignant HTN, ACS. Data reviewed: vital sb4 signs, nurses notes, EMS record, lab test result(s), EKG, radiologic studies, and as a result, I will discharge patient. Care significantly affected by the following chronic conditions: Hypertension. Scoring Tools HEART Score: History: ECG: Age: Risk Factors: 1 or 2 risk factors (1), Troponin: Total Score = 2. 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 Special discussion: Based on the patient's history, exam, and Dx evaluation, there is no indication for emergent intervention or inpatient Tx. It is understood by the patient/guardian that if the Sx's persist or worsen they need to return immediately for re-evaluation. ED course: Patient reports feeling better and is requesting be discharged. 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 I did recommend some IV hydration and repeating troponin, but patient states that he is just fine and is ready to go home and will follow-up with his regular doctor. He is requesting a refill carvedilol which I will refill for a 15-day supply at this time. Instructed to return for any new or worsening symptoms. Patient understands and agreement with the plan. 04/19 12:20 Order name: Basic Metabolic Panel; Complete Time: 13:11 sb4 04/19 12:20 Order name: CBC with Diff; Complete Time: 12:45 sb4 04/19 12:20 Order name: LFT's; Complete Time: 13:11 sb4 04/19 12:20 Order name: Magnesium; Complete Time: 13:11 sb4 04/19 12:20 Order name: NT PRO-BNP; Complete Time: 13:11 sb4 04/19 12:20 Order name: PT-INR; Complete Time: 12:58 sb4 04/19 12:20 Order name: Troponin HS; Complete Time: 13:11 sb4 04/19 12:20 Order name: COVID-19 Ag + Flu A+B Ag; Complete Time: 13:17 sb4 04/19 12:20 Order name: XRAY Chest (1 view); Complete Time: 13:07 sb4 04/19 12:20 Order name: EKG; Complete Time: 12:21 sb4 04/19 12:20 Order name: Cardiac monitoring; Complete Time: 12:48 sb4 04/19 12:20 Order name: EKG - Nurse/Tech; Complete Time: 12:48 sb4 04/19 12:20 Order name: IV Saline Lock; Complete Time: 12:48 sb4 04/19 12:20 Order name: Labs collected and sent; Complete Time: 12:48 sb4 04/19 12:20 Order name: O2 Per Protocol; Complete Time: 12:48 sb4 04/19 12:20 Order name: O2 Sat Monitoring; Complete Time: 12:48 sb4 EC:45 Rate is 70 beats/min. Rhythm is regular, Normal Sinus Rhythm. GA interval is normal at sb4 148 msec. QRS interval is normal at 104 msec. QT interval is normal at 386 msec. No Q waves. T waves are Normal. No ST changes noted. Clinical impression: Normal ECG. Interpreted by me. Reviewed by me. Administered Medications: 12:50 Drug: Aspirin PO Chewable Tablet 324 mg PO once; 81 mg tablets x 4 Route: PO; db 13:48 Follow up: Response: No adverse reaction db 12:50 Drug: carvedilol PO 25 mg PO once; administer with food Route: PO; db 13:48 Follow up: Response: No adverse reaction db 13:17 CANCELLED (Physician Discretion): ns 0.9% 1000 ml IV at 1000 ml once; to be given as a sb4 bolus over 60 minutes Disposition: 16:07 Co-signature as Attending Physician, Efrem Garrison MD I reviewed the patient's care rn provided by the Advanced Practice Provider and agree with the diagnosis and treatment plan. Disposition Summary: 04/19/25 13:20 Discharge Ordered Notes: Location: Home sb4 Problem: new sb4 Symptoms: have improved sb4 Condition: Stable sb4 Diagnosis - Essential (primary) hypertension sb4 - Chest pain, unspecified sb4 Followup: sb4 - With: Emergency Department - When: As needed - Reason: Trouble breathing, Worsening of condition Discharge Instructions: - Discharge Summary Sheet sb4 - Nonspecific Chest Pain, Adult, [id number]-Rich sb4 - Hypertension, Adult, [id number] sb4 Forms: - Patient Portal Instructions sb4 - Leadership Thank You Letter sb4 Prescriptions: - carvedilol 25 mg Oral tablet - take 1 tablet ORAL route 2 times per day must administer with a meal/food; 30 sb4 tablet; Refills: 0, Product Selection Permitted Signatures: Dispatcher [employer] EDEfrem Hnery MD MD rn Benton, Danielle, RN RN db Brown, Sophia, PA-C PACyndi sb4 Corrections: (The following items were deleted from the chart) 13:17 13:17 NS 0.9% IV 1000 ml IV at 1000 ml once; to be given as a bolus over 60 minutes sb4 ordered. sb4
[2025-04-19 13:53] VITALS: BP 152/106; O2SAT 96
== END 2025-04-19 13:49 | disposition home or self-care (01) ==
LOC: ER 12:18
DX: R07.9 Chest pain, unspecified (principal); I10 Essential (primary) hypertension; Z88.0 Allergy status to penicillin; Z11.52 Encounter for screening for COVID-19
CPT/HCPCS: 36415; 71045; 80048; 80076; 83735; 83880; 84484; 85025; 85610; 87428; 93005; 99284